=== PATIENT | female | born 1965 | race Caucasian/White ===

== ENCOUNTER 2023-03-28 09:41 | Day surgery (SDC) | payer OTHER ==
[2023-03-27 16:14] LABS: Absolute Lymphocytes (CBC) 3.4 K/uL (0.7-4.9); Hematocrit 39.4 % (36.0-45.0); Lymphocytes % 39.7 % (15.3-44.8); MCV 96.3 fL (80-100); MPV 7.6 fL (7.6-11.3); Platelets 256 thou/uL (152-406); RBC Red Blood Cell Count 4.09 M/uL (3.86-4.86)
[2023-03-27 16:43] LABS: Potassium 4.4 mEq/L (3.5-5.1)
[2023-03-28] MEDS ORDERED: CLINDAMYCIN 900MG/D5W 900 MG/50 ML IVPB IV ONE (10:26)
[2023-03-28] MEDS ORDERED: MIDAZOLAM HCL 2 MG/2 ML INJ ONE (11:23)
[2023-03-28] MEDS ORDERED: propofoL 200 MG/20 ML VIAL IV ONE (11:23)
[2023-03-28] MEDS ORDERED: KETOROLAC 30 MG/ML INJ ONE (11:24)
[2023-03-28] MEDS ORDERED: ONDANSETRON 4 MG/2 ML VIAL ONE (11:24)
[2023-03-28] MEDS ORDERED: Ringers Lactate 1,000 ML IV ONE (11:31)
--- NOTE | 2023-03-28 13:17 | OP ---
Date of Procedure: 03/28/2023 Surgeon: Jimmy Mena MD Preoperative Diagnosis: Left knee pain with mechanical symptoms with some degenerative articular radha nges. 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 2.Tear of medial meniscus. 3.Some reciprocal degenerative changes of the medial tibia. Procedure: Left knee arthroscopy with debridement of medial meniscus. There is some shaving of the unstable cartilage flaps. Estimated Blood Loss: Less than 10 cc. Complications: There were no complications. Specimens: No pathology specimens sent. Indications: Ms. Canela is a 57-year-old female who unfortunately has significant pain related to he r left knee. These were accompanied by mechanical symptoms and felt to respond to conservative measu res. Does have an MRI which demonstrates probable chondral changes as well as meniscal tear. Risks, benefits, and alternatives of different methods of treating this were discussed with the patient. S he states she understands things as presented and knows that arthroscopy is not significantly helpful for degenerative chondral changes, however, could help with mechanical symptoms as well as meniscal tear. She says she understands everything as presented and wishes to proceed. Description Of Procedure: The patient was taken to the operating room, placed in supine position. G eneral anesthesia was obtained by staff. Following this, well-padded tourniquet was placed on superi or left thigh. Left lower extremity was then prepped and draped in the usual sterile fashion for the procedure. After this, a standard superior medial arthroscopy portal was then placed with liberatio n of approximately 30 cc of rather normal-appearing synovial fluid. This was followed by placement o f inferolateral arthroscopy portal which was made atraumatically with 1 pass and the knee was sequent ially examined including suprapatellar pouch, medial and lateral gutters, medial and lateral compartm ents as well as notch at patellofemoral joint. The ACL appeared to be fine and the large compartment appeared to be free of pathology. She does have some degenerative changes under the patella as well as more significant degenerative changes of the medial compartment. There does appear to be some un stable chondral flaps. Also easily seen is a tear of the medial meniscus. A standard inferomedial a rthroscopy portal was then performed using a needle for localization, and the medial meniscus was the n trimmed back to a firm, well contoured hook, stable base. This was followed by investigation of th e femoral chondral surface and does have some areas which were frankly displaceable. These were felt could be causing mechanical symptoms and these were gently trimmed back. However, no chondral tissu e was removed. Other than that, it was absolutely deemed to be unstable. Following this, the knee w as again examined in all the above areas. No further pathology seen, which was amenable to arthrosco pic intervention. The inferior arthroscopy portals were then stapled shut. Superior medial arthrosc opy portal was used for placement of Marcaine with epinephrine. This was then stapled. The patient was placed in a well-padded sterile dressing, awakened, and taken to recovery room in good condition. There were no complications. /RAVEN Voice ID: [id number] Report ID: [id number]
[2023-03-28] MEDS ORDERED: HYDROCODONE/APAP 10/325 TAB ONE (13:45)
[2023-03-28 14:09] VITALS: BP 147/77; TEMP 97.1; O2SAT 96
== END 2023-03-28 13:45 | disposition home or self-care (01) ==
LOC: OR 09:41
PROVIDERS: ATTEND Orthopaedic Surgery
PROC: 0SBD4ZZ Excision of Left Knee Joint, Percutaneous Endoscopic Approach (ICD-10-PCS; principal; 2023-03-28 11:30)
DX: S83.242A Other tear of medial meniscus, current injury, left knee, initial encounter (principal); M94.262 Chondromalacia, left knee; M17.12 Unilateral primary osteoarthritis, left knee; I10 Essential (primary) hypertension; J44.9 Chronic obstructive pulmonary disease, unspecified; E78.00 Pure hypercholesterolemia, unspecified; G47.00 Insomnia, unspecified; F32.A Depression, unspecified; F41.9 Anxiety disorder, unspecified; E66.9 Obesity, unspecified; Z68.31 Body mass index [BMI] 31.0-31.9, adult; F17.210 Nicotine dependence, cigarettes, uncomplicated; Z79.899 Other long term (current) drug therapy; Z88.0 Allergy status to penicillin; Z82.49 Family history of ischemic heart disease and other diseases of the circulatory system; Z83.3 Family history of diabetes mellitus; Z80.9 Family history of malignant neoplasm, unspecified
CPT/HCPCS: 29881; 85025; 80048; 36415; J2704; J2250; J2405; J7120